=== PATIENT | female | born 1985 | race Caucasian/White ===

== ENCOUNTER 2022-04-20 22:35 | Emergency (ER) | payer MEDICAID ==
[~2022-04-20] VITALS: Ht 160 cm; Wt 136.1 kg
[2022-04-20 22:43] VITALS: BP 166/110
--- NOTE | 2022-04-20 22:56 | NUR ---
Dr. Graves examining patient.
[2022-04-20] MEDS ORDERED: predniSONE 20 MG TAB PO ONE (23:05)
--- NOTE | 2022-04-20 23:08 | NUR ---
36YR OLD FEMALE BIB SELF C/O R FACIAL PAIN /SWELLING STARTED THIS MORING. SWELLING DOWN TO NECK . PAIN LEVEL 6/10 THROBBING . PT IS A&OX4. DENIES SOB OR CP DENIES ANY RECENT DENTAL WORK. RESP EVEN AND UNLABORED. BED AT LOWEST POSITION NKDA NA
[2022-04-20] MEDS ORDERED: VALA1TAB2 PO (23:11)
[2022-04-20] MEDS ORDERED: CARB1SOL8 OP (23:11)
[2022-04-20] MEDS ORDERED: PRED20TA5 PO (23:11)
[2022-04-20] MEDS ORDERED: predniSONE 10 MG TAB ONE (23:12)
[2022-04-20 23:31] VITALS: BP 152/98
--- NOTE | 2022-04-20 23:31 | NUR ---
Patient discharged with v/s stable. Written and verbal after care instructions given and explained. Patient alert, oriented and verbalized understanding of instructions. Ambulatory with steady gait. All questions addressed prior to discharge. ID band removed. Patient advised to follow up with PMD. Rx of Deltasone, Valtrex and Refresh plus given. Patient educated on indication of medication including possible reaction and side effects. Opportunity to ask questions provided and answered.
== END 2022-04-20 23:31 | disposition home or self-care (01) ==
LOC: MED 22:35
DX: G51.0 Bell's palsy (principal)
CPT/HCPCS: 99283; J7512